=== PATIENT | female | born 1950 | race Caucasian/White ===

== ENCOUNTER → 2024-03-14 11:01 | Outpatient (REF) | payer MEDICARE, BC, SELFPAY | LOC: RAD 11:01 | PROVIDERS: ATTENDING PHYSICIAN Internal Medicine | DX: R10.32 Left lower quadrant pain (principal); Z87.19 Personal history of other diseases of the digestive system; E03.9 Hypothyroidism, unspecified; I10 Essential (primary) hypertension; R14.0 Abdominal distension (gaseous) | CPT/HCPCS: 74176 ==

== ENCOUNTER → 2025-08-22 10:51 | Outpatient (REF) | payer MEDICARE, BC, SELFPAY | LOC: RAD 10:51 | PROVIDERS: FAMILY PHYSICIAN Internal Medicine | DX: M54.16 Radiculopathy, lumbar region (principal) | CPT/HCPCS: 72100 ==